=== PATIENT | male | born 1980 | race Caucasian/White ===

== ENCOUNTER → 2022-02-28 15:43 | Outpatient (CLI) | payer BC, SELFPAY ==
--- NOTE | ~2022-02-28 | MR_ITS ---
EXAMINATION: MR knee LT wo con DATE: 02/28/2022 16:21 INDICATION: Posterior left knee pain since October, pain with bending, no specific trauma. TECHNIQUE: Magnetic resonance imaging (MRI) of the left knee was performed without intravenous contra st. Sequences included axial PD-weighted FS FSE, coronal PD-weighted FSE and PD-weighted FS FSE, sagi ttal PD-weighted FSE, and sagittal T2-weighted FS FSE. COMPARISON: None. FINDINGS: Medial compartment: Mild diffuse cartilage thinning and osteophytosis. Horizontal cleavage type tear of the posterior hor n and body, medial meniscus with a small adjacent perimeniscal cyst. Lateral compartment: Intact meniscus. Mild diffuse thinning of cartilage and osteophytosis. Patellofemoral compartment: Patellar cartilage and retinacula intact. Ligaments and tendons: The ACL, PCL, MCL, and LCL are intact. Thickening and mild abnormal signal within the quadriceps and patellar tendons. The remaining flexor and extensor tendons are intact and normal. Fluid: Small volume joint fluid. Osseous/other: No suspicious focal or diffuse marrow signal IMPRESSION: 1. Horizontal cleavage type tear of the posterior horn and body, medial meniscus. 2. Chronic quadriceps and patellar tendinopathy. 3. Mild medial and lateral compartment degenerative change. Reviewed, dictated and finalized at location K. [employer] IMPRESSION: 1. Horizontal cleavage type tear of the posterior horn and body, medial meniscu s. 2. Chronic quadriceps and patellar tendinopathy. 3. Mild medial and lateral compartment degenerative change.
== END ==
DX: M25.562 Pain in left knee (principal); S83.242A Other tear of medial meniscus, current injury, left knee, initial encounter; M76.52 Patellar tendinitis, left knee
CPT/HCPCS: 73721